=== PATIENT | male | born 1955 | race Hispanic/Latino ===

== ENCOUNTER → 2018-02-17 | Outpatient (CLI) | payer BC ==
--- NOTE | 2018-02-17 10:14 | Diagnostic Imaging Report ---
PROCEDURE:X-RAY RIGHT FOOT, COMPLETE COMPARISON:None. INDICATIONS:RIGHT FOOT PAIN FINDINGS: No acute, displaced fracture or dislocation. Appropriate interval between the medial cuneiform and second metatarsal base in keeping with an intact Lisfranc ligament. Hallux valgus deformity with hypertrophy of the first metatarsal head. Joint spaces are well-maintained. No focal soft tissue abnormalities. CONCLUSION: No acute osseous abnormality. Hallux valgus deformity. Dictated by: Melvin Easton M.D. on 02/17/2018 at 10:15 Electronically approved by: Melvin Easton M.D. on 02/17/2018 at 10:15
== END ==
LOC: RAD 09:36
PROVIDERS: ATTEND Family Medicine
DX: M79.671 Pain in right foot (principal)